=== PATIENT | female | born 1940 | race Caucasian/White ===

== ENCOUNTER 2018-03-19 21:59 | Observation (INO) | payer MEDICARE ==
[2018-03-19 22:45] LABS: ABS Basophils 0 10^3/ul (0-0.2); ABS Eosinophils 0.2 10^3/ul (0-0.6); ABS Lymphocytes 1.3 10^3/ul (1.0-4.8); ABS Monocytes 0.7 10^3/ul (0-0.8); ABS Neutrophils 3.9 10^3/ul (1.5-7.7); ABS Nucleated RBC 0 10^3/ul; Eosinophil % 3.9 % (0-6); Hematocrit 36 % (35-47); Hemoglobin 12.2 g/dl (12.0-16.0); Lymphocyte % 20.7 % (25-47); Mean Corpuscular HGB Conc 34 g/dl (31-36); Mean Corpuscular Hemoglobin 34 pg (27-31); Mean Corpuscular Volume 100 fL (80-97); Mean Platelet Volume 8.9 um3 (7.4-10.4); Nucleated Red Blood Cells % 0; Platelet Count 173 10^3/ul (150-450); Red Blood Count 3.61 10^6/ul (4.0-5.4); Red Cell Distribution Width 13 % (10.5-15); White Blood Count 6.2 10^3/ul (3.5-10.8)
[2018-03-19 23:02] LABS: EGFR Non-African American 71.8 (>60)
--- OUTSIDE RECORDS SUMMARY | 2018-03-19 23:28 | XMS REPORT ---
:1940 External Reference #:[id number] [facility] Address [address] [address] Phone [phone] Care Team Providers Name Role Phone Tobi Amos MD Primary Care Physician Unavailable Payers Type Date Identification Numbers Payment Provider Subscriber Health Maintenance Policy Number: Medicare Blue o Danae Boyiknjosé Alirio (O) [id number] Group Number: [id number] [address] [address] PayID: [id number] DAMI Hayes [id number] Medigap Part B Expires: 11/28/2000 Policy Number: [facility] Danae Gomes [id number] Group Number: [id number] [address] [address] Group Name: [id number] Adv Plan DAMI Hayes [id number] PayID: [id number] Problems Date Description Provider Status Onset: 07/29/2015 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 Active Social History Type Date Description Comments Marital Status Lives With Tony at [place] Occupation Retired Cigarette Use Pack Years - 10 Cigarette Use Quit 50 Years Ago ETOH Use Denies alcohol use Smoking Patient is a former smoker Recreational Drug Use Denies Drug Use Daily Caffeine Consumes on average 1 cup of regular coffee per day Daily Caffeine consumes chocolate occasionally Daily Caffeine Consumes on average 2 sodas Diet Coke per day Exercise Type/Frequency Exercises sporadically Walking when she feels good General Hx Text Do you follow a special diet: yes Do you have problems with snoring, daytime fatigue: pt states she does not know if she snores only can sleep on back. Allergies, Adverse Reactions, Alerts Date Description Reaction Status Severity Comments 01/19/2016 Iodinated Diagnostic Agents rash active Visipaque 01/22/2016 Visipaque rash active 07/31/2015 NKDA inactive Medications Medication Date Status Form Strength Qnty SIG Indications Ordering Provider Gas-X Ultra 07/29 Active Capsules 180mg prn Daryl MD Sarbjit Sandostatin Active Solution 40mg every 28 Unknown /0000 days Nexium Active [address]apsules DR 40mg 1 cap po Unknown /0000 qd Fluticasone Active Suspension 50mcg/Act 2 spray in Unknown Propionate /0000 each nostril in in the morning Carafate Active Tablets 1gm 1 by mouth Unknown /0000 daily Hydrochlorothiazi Active Tablets 25mg 1 by mouth Unknown de /0000 every day Claritin Active Tablets 10mg 1 tab po Unknown /0000 qd Centrum Silver 00 Active Tablets Adult 50 1 tab po Unknown Adult 50+ /0000 qd Vitamin D Active Tablets 1000Unit 1 by mouth Unknown (Cholecalciferol) /0000 every day ( Occasional taken ) Acetaminophen 00 Active Tablets 500mg prn Unknown Extra Strength /0000 Ibuprofen Active Tablets 200mg prn Unknown /0000 Docusate Sodium Active Capsules 100mg 2 caps by Unknown /0000 mouth every day Lactaid Fast Act Active Chewtabs 9000Unit prn Unknown /0000 Beano Active Tablets as Unknown /0000 directed prn Oxycodone HCL Active Tablets 5mg 1 tab by Unknown /0000 mouth every 4 hours as needed pain Careolol Active 1 gtt OU Unknown /0000 daily Pepto-Bismol Active as needed Unknown /0000 Tums Active as needed Unknown /0000 Tums 07/29 Hx Chewtabs 500mg prn Emmie /2014 Piedad, - N.P. 01/19 Maalox Advanced Hx Suspension 200-200-2 prn Unknown /0000 0mg/5ML - 01/19 Gas-X Ultra Hx Capsules 180mg prn Unknown Strength /0000 - 03/17 Vital Signs Date Vital Result Comment 03/15/2018 Height 67 inches 5'7" Weight 148.12 lb with shoes Heart Rate 52 /min BP Systolic Sitting 120 mmHg Lue reg cuff BP Diastolic Sitting 80 mmHg Lue reg cuff Respiratory Rate 16 /min BMI (Body Mass Index) 23.2 kg/m2 Ejection Fraction 55-60% date 06/20/17 ECHO 03/17/2016 Weight 140.38 lb Heart Rate 66 /min BP Systolic Sitting 132 mmHg BP Diastolic Sitting 62 mmHg Respiratory Rate 20 /min O2 % BldC Oximetry 99 % 01/22/2016 Height 67 inches 5'7" Weight 141.00 lb Heart Rate 57 /min BP Systolic Sitting 112 mmHg BP Diastolic Sitting 72 mmHg BMI (Body Mass Index) 22.1 kg/m2 01/19/2016 Weight 148.25 lb Heart Rate 54 /min BP Systolic Sitting 138 mmHg BP Diastolic Sitting 78 mmHg Respiratory Rate 20 /min Body Temperature 98.2 F 07/29/2015 Weight 142.50 lb Heart Rate 81 /min BP Systolic Sitting 140 mmHg BP Diastolic Sitting 72 mmHg Respiratory Rate 16 /min Body Temperature 98.3 F O2 % BldC Oximetry 98 % Results Test Date Test Result H/L Range Note Urinalysis Profile 05/10/2017 Urine Color Jacquelyn 1 Urine Appearance Cloudy 1 Urine Specific Samson 1.016 1.010-1.030 1 Urine pH 6.0 5-9 1 Urine Urobilinogen Negative Negative 1 Urine Ketones Negative Negative 1 Urine Protein 2+(100 mg/dL) Negative 1 Urine Leukocytes 3+ Negative 1 Urine Blood 3+ Negative 1 * * Negative 1, 2 Urine Nitrite Negative Negative 1 Urine Bilirubin Negative Negative 1 Urine Glucose Negative Negative 1 Urine White Blood Cell 3+(>20/hpf) Absent 1 Urine Red Blood Cell 3+(>10/hpf) Absent 1 Urine Bacteria Absent Absent 1 Urine Culture And Sensitivities 05/10/2017 Urine Culture SEE RESULT BELOW 1, 3 Urinalysis Profile 02/10/2017 Urine Color Yellow 4 Urine Appearance Cloudy 4 Urine Specific Samson 1.015 1.010-1.030 4 Urine pH 8.0 5-9 4 Urine Urobilinogen Negative Negative 4 Urine Ketones Negative Negative 4 Urine Protein 2+(100 mg/dL) Negative 4 Urine Leukocytes 3+ Negative 4 Urine Blood 2+ Negative 4 * * Negative 4, 5 Urine Nitrite Negative Negative 4 Urine Bilirubin Negative Negative 4 Urine Glucose Negative Negative 4 Urine White Blood Cell 3+(>20/hpf) Absent 4 Urine Red Blood Cell 3+(>10/hpf) Absent 4 Urine Bacteria Absent Absent 4 Urine Squamous Epithelial Cell Present Absent 4 Urine Culture And Sensitivities 02/10/2017 Urine Culture SEE RESULT BELOW 4, 6 Urinalysis Profile 03/17/2016 Urine Color Yellow 7 Urine Appearance Cloudy 7 Urine Specific Samson 1.009 Low 1.010-1.030 7 Urine pH 6.0 5-9 7 Urine Urobilinogen Negative Negative 7 Urine Ketones Negative Negative 7 Urine Protein Negative Negative 7 Urine Leukocytes 2+ Negative 7 Urine Blood 1+ Negative 7 Urine Nitrite Negative Negative 7 Urine Bilirubin Negative Negative 7 Urine Glucose Negative Negative 7 Urine White Blood Cell 3+(>20/hpf) Absent 7 Urine Red Blood Cell 3+(>10/hpf) Absent 7 Urine Bacteria Absent Absent 7 Urine Squamous Epithelial Cell Present Absent 7 Urine Culture And 03/17/2016 Urine Culture SEE RESULT 7, 8 Sensitivities BELOW CBC No Diff 02/27/2016 White Blood Count 17.2 10^3/uL High 3.5-10.8 9 Red Blood Count 3.61 10^6/uL Low 4.0-5.4 9 Hemoglobin 11.7 g/dL Low 12.0-16.0 9 Hematocrit 34 % Low 35-47 9 Mean Corpuscular Volume 94 fL 80-97 9 Mean Corpuscular Hemoglobin 33 pg High 27-31 9 Mean Corpuscular HGB Conc 35 g/dL 31-36 9 Red Cell Distribution Width 14 % 10.5-15 9 Platelet Count 363 10^3/uL 150-450 9 Mean Platelet Volume 9 um3 7.4-10.4 9 Laboratory test 02/27/2016 Blood Culture SEE RESULT BELOW 9, 10 finding Laboratory test 02/18/2016 Partial Thrombo 33.3 seconds 26.0-36.3 11, 12 finding Time PTT Inr/Protime 02/18/2016 Inr 0.99 0.89-1.11 11 Urinalysis Profile 01/28/2016 Urine Color Red Urine Appearance Turbid Urine Specific Samson 1.020 1.010-1.030 Urine pH 6.0 5-9 Urine Urobilinogen Negative Negative Urine Ketones Negative Negative Urine Protein 2+(100 mg/dL) Negative Urine Leukocytes Negative Negative Urine Blood 3+ Negative * * Negative 13 Urine Nitrite Negative Negative Urine Bilirubin Negative Negative Urine Glucose 1+(50 mg/dL) Negative Urine White Blood Cell Trace(0-5/hpf) Absent Urine Red Blood Cell 3+(>10/hpf) Absent Urine Bacteria Absent Absent Laboratory test finding 01/28/2016 Urine Culture And SEE RESULT BELOW 14 Sensitivities Urinalysis Profile 08/06/2015 Urine Color Yellow Urine Appearance Cloudy Urine Specific Samson 1.013 1.010-1.030 Urine pH 6.0 5-9 Urine Urobilinogen Negative Negative Urine Ketones Negative Negative Urine Protein Negative Negative Urine Leukocytes Negative Negative Urine Blood 1+ Negative Urine Nitrite Negative Negative Urine Bilirubin Negative Negative Urine Glucose Negative Negative Urine White Blood Cell Trace(0-5/hpf) Absent Urine Red Blood Cell 1+(3-5/hpf) Absent Urine Bacteria Absent Absent Urine Squamous Epithelial Cell Present Absent Laboratory test finding 08/06/2015 Urine Culture And SEE RESULT BELOW 15 Sensitivities Urinalysis Profile 07/29/2015 Urine Color Yellow Urine Appearance Cloudy Urine Specific Samson 1.010 1.010-1.030 Urine pH 7.0 5-9 Urine Urobilinogen Negative Negative Urine Ketones Negative Negative Urine Protein Negative Negative Urine Leukocytes Negative Negative Urine Blood 1+ Negative Urine Nitrite Negative Negative Urine Bilirubin Negative Negative Urine Glucose Negative Negative Urine White Blood Cell Absent Absent Urine Red Blood Cell 1+(3-5/hpf) Absent Urine Bacteria 1+ Absent Urine Squamous Epithelial Cell Present Absent Laboratory test finding 07/29/2015 Urine Culture And SEE RESULT BELOW 16 Sensitivities 1 [id number] *Ascorbic acid is present which may interfere with detection of blood. 3 SEE RESULT BELOW Name: DANAE GOMES : [address]: Emmie Herbert NP Acct: [id number] Unit: [id number] AGE: 76 Location: [facility] Re05/10/17 SEX: F Status: REG REF SPEC: [id number] MARCUS: 05/10/17-[address] [facility] [address]: Emmie Herbert NP REQ: [id number] RECD: 05/10/17163 STATUS: RES [facility] : Martha _ SOURCE: URINE SPDESC: ORDERED: Urine Culture COMMENTS: [id number] QUERIES: Urine Source: Random Procedure Result Reported Site Urine Culture Preliminary 05/12/17- 1024 ML Organism [address] Count 10-25,000 (Moderate) CFU/ML Few Enterobacteriacae; possible contamination. * ML - MAIN LAB ([facility]) . END OF REPORT * ML=Testing performed at Main Lab DEPARTMENT OF PATHOLOGY, [address], [place], [place] [address] Gianluca Malone M.D. Director [facility] # [id number] *Ascorbic acid is present which may interfere with detection of blood. 6 SEE RESULT BELOW Name: DANAE GOMES : [address]: Emmie Herbert NP Acct: [id number] Unit: [id number] AGE: 76 Location: [facility] Re02/10/17 SEX: F Status: REG REF SPEC: [id number] MARCUS: 02/10/[address] [facility] [address]: Emmie Herbert NP REQ: [id number] RECD: 02/10/17-1215 STATUS: MOHSEN JONES DR: Tobi Thomas _ SOURCE: URINE SPDESC: ORDERED: Urine Culture COMMENTS: [id number] Procedure Result Reported Site Urine Culture Final 02/11/17- 1203 ML No growth of clinically significant organisms * ML - MA[facility] LAB ([facility]) . END OF REPORT * ML=Testing performed at Main Lab DEPARTMENT OF PATHOLOGY, [address] [place] [address] Gianluca Malone M.D. Director [facility] # [id number] TIO [id number] 7 SEE RESULT BELOW Name: DANAE GOMES : [address]: Emmie Herbert NP Acct: [id number] Unit: [id number] AGE: 75 Location: [facility] Re03/17/16 SEX: F Status: REG REF SPEC: [id number] MARCUS: 03/17/[address]: Emmie Herbert NP REQ: [id number] RECD: 03/17/16 STATUS: COMP KAREN DR: Tobi Ponce MD _ SOURCE: URINE SPDESC: ORDERED: Urine Culture COMMENTS: [facility] [id number] Procedure Result Reported Site Urine Culture Final 03/18/16- 1556 ML No Growth (<1,000 CFU/mL) * ML - MAIN LAB ([facility]) . END OF REPORT * ML=Testing performed at Main Lab DEPARTMENT OF PATHOLOGY, [address] [place] [address] Gianluca Malone M.D. Director [facility] # [id number] [address] TERRENCE ROJO [phone] 10 SEE RESULT BELOW Name: JUVENALJEREMIAHJoséDANAE : [address]: Marcus Ponce MD Acct: [id number] Unit: [id number] AGE: 75 Location: [facility] Re02/27/16 SEX: F Status: REG REF SPEC: [id number] MARCUS: 02/27/[address] [facility] [address]: Terrence Rojo MD REQ: [id number] RECD: 02/27/16 STATUS: COMP OTHR DR: Tobi Ponce MD _ SOURCE: BLOOD,VENO SPDESC: ORDERED: Blood Cult COMMENTS: PLEASE CALL DR TERRENCE ROJO [phone] . . CALLED MADE NO RETURN CALL.[id number] . Procedure Result Reported Site Aerobic Culture Bottle Final 03/03/16- 1701 ML No Growth Day 5 Anaerobic Culture Bottle Final 03/03/16- 1701 ML No Growth Day 5 * ML - [facility] ([facility]) . END OF REPORT * ML=Testing performed at Main Lab DEPARTMENT OF PATHOLOGY, [address] [place] [address] Gianluca Malone M.D. Director [facility] # [id number] 11 CALL RESULTS TO 6510 12 CALL RESULTS TO 9532 13 *Ascorbic acid is present which may interfere with detection of blood. 14 SEE RESULT BELOW Name: DANAE GOMES : [address]: Emmie Herbert NP Acct: [id number] Unit: [id number] AGE: 75 Location: [facility] Re01/28/16 SEX: F Status: REG REF SPEC: [id number] MARCUS: 01/28/[address]: Emmie Herbert NP REQ: [id number] RECD: 01/28/16 STATUS: MOHSEN JONES DR: Martha Ponce MD _ [facility]: Urine Culture Procedure Result Reported Site Urine Culture Final 01/30/16- 828 ML Organism [address] Count 10-25,000 (Moderate) CFU/ML Organism [address] Count 1-10,000 (Few) CFU/ML 1. ESCHERICHIA COLI M.I.C. RX --------- ------ Ampicillin <=2 S Cefazolin <=4 S Cefepime <=1 S Ceftriaxone <=1 S Ciprofloxacin <=0.25 S Gentamicin <=1 S Levofloxacin <=0.12 S Meropenem <=0.25 S Nitrofurantoin <=16 S Tetracycline <=1 S Pipercillin/Tazobactam <=4 S Trimethoprim/Sulfamethoxazole <=20 S Amoxicillin/Clavulanic Acid <=2 S Aztreonam <=1 S Contact the Microbiology Department for any additional antibiotic reporting. * ML - MAIN LAB ([facility]) . END OF REPORT * ML=Testing performed at Main Lab DEPARTMENT OF PATHOLOGY, [address] [place] [address] Gianluca Malone M.D. Director [facility] # [id number] 15 SEE RESULT BELOW Name: DANAE GOMES : [address]: Emmie Herbert NP Acct: [id number] Unit: [id number] AGE: 74 Location: [facility] Re08/06/15 SEX: F Status: REG REF SPEC: [id number] MARCUS: 08/06/[address]: Emmie Herbert NP REQ: [id number] RECD: 08/06/15 STATUS: MOHSEN JONES DR: Martha _ SOURCE: URINE SPDESC: ORDERED: Urine Culture Procedure Result Verified Site Urine Culture Final 08/08/15- 930 ML Organism [address] Count 75-100,000 (Many) CFU/ML * ML - MAIN LAB ([facility]) . END OF REPORT * ML=Testing performed at Main Lab DEPARTMENT OF PATHOLOGY, [address] [place] [address] Gianluca Malone M.D. Director [facility] # [id number] 16 SEE RESULT BELOW Name: DANAE GOMES : [address]: Emmie Herbert NP Acct: [id number] Unit: [id number] AGE: 74 Location: [facility] Re07/29/15 SEX: F Status: REG REF SPEC: [id number] MARCUS: 07/29/15-[address]: Emmie Herbert NP REQ: [id number] RECD: 07/29/15 STATUS: MOHSEN JONES DR: Martha _ SOURCE: URINE SPDESC: ORDERED: Urine Culture Procedure Result Verified Site Urine Culture Final 07/31/15- 1000 ML Organism [address] Count 50-75,000 (Many) CFU/ML * ML - MAIN LAB ([facility]) . END OF REPORT * ML=Testing performed at Main Lab DEPARTMENT OF PATHOLOGY, [address] [place] [address] Gianluca Malone M.D. Director [facility] # [id number] Procedures Date CPT Code Description Status 06/20/2017 12234 ECHO Transthorasic Realtime 2D W Doppler & Color Completed Flow Hosp 07/20/2016 08564 ECHO Transthoracic, Real-Time 2D With Doppler And Color Completed Flow 02/18/2016 87595 Ultrasound Guidance For Vascular Access Completed 02/18/2016 35762 Angiography Select, Ea Add'l VSL Completed 02/18/2016 31250 Angiography,Visceral,Selective Or Supraselective W/Wo Completed Flush Aorto 02/18/2016 09148 Vascular Embolization Or Occlu Tumor Organ Ischemia Or Completed Infarction 02/18/2016 67812 Catheter Placement Arterial System Addtl 2ND/3RD Ord Completed Abdom/Pelv 02/18/2016 36788 Catheter Placement Arterial System Init 3RD Order Completed Abdom/Pelv/Low 02/18/2016 29202 Cath Placement-Abdom, Pelvic Or Lower Extremity Completed 09/15/2015 36761 ECHO Transthorasic Realtime 2D W Doppler & Color Completed Flow Hosp 02/28/2015 99388 ECHO Transthorasic Realtime 2D W Doppler & Color Completed Flow Hosp Encounters Type Date Location Provider CPT E/M Dx Office Visit 03/31/2017 2:00p [facility] [place] [address] L72.0 L82.1 I89.0 D18.01 Office Visit 03/18/2016 1:30p [facility] Vascular Medicine Terrence Rojo, [address] C7A.1 Of [place] No C7B.8 C7A.090 Office Visit 03/17/2016 11:38a [facility] Emmie Herbert N.P. 65444 R31.9 R31.9 Office Visit 01/22/2016 3:30p [facility] Vascular Medicine Terrence Rojo [address] C7A.1 Of [place] No C7B.8 C7A.090 Office Visit 01/19/2016 2:46p [facility] Emmie Herbert, N.P. [address]349 R21 R21 Office Visit 07/29/2015 1:11p [facility] Emmie Herbert, N.P. 65160 599.70 599.70 Plan of Care 03/18/2016 - Terrence Rojo M.D.C7A.1 Malignant poorly differentiated neuroendocrine tumorsRecommendations:Mrs. Gomes and I agreed to wait at least 1 -2 months to see how and if her carcinoid symptoms improve. If she experiences no improvement then we will discuss repeat embolization of either her left lobeliver again or to a lesion that has never been treated in segment 6 of her right lobe. 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 She has my contact numbers and email address and was encouraged again to contact me at anytime.C7B.8 Other secondary neuroendocrine [id number].090 Malignant carcinoid tumor of the bronchus and lung
[2018-03-19] MEDS ORDERED: Nitroglycerin 2% OINT* 1 GM PAK TOPICAL ONE (23:32)
[2018-03-19] MEDS ORDERED: Nitroglycerin TAB 0.4 MG* 0.4 MG TAB SL ONE (23:32)
[2018-03-20] MEDS ORDERED: hydrALAZINE IV* 20 MG/ML VIAL IV SLOW PU ONE (00:23)
[2018-03-20] MEDS ORDERED: Nitroglycerin 0.1 mg/Hr PATCH* (2.5 MG) TRANSDERM ONE (00:23)
--- NOTE | 2018-03-20 02:21 | HP ---
H&P (Free Text) History and Physical: PCP: Shelbi Amos MD Oncology: Yulissa Ponce MD Date/Time: 03/20/2018 0220 CC: chest pain HPI: Mrs Gomes is a 77YO female, mother of Dr Gomes sports medicine, HX of carcinoid cancer who presents for onset this afternoon of non-exertional inferolateral L chest pressure radiating to the back and down the L arm associated with SOB and nausea, but no emesis, sweats, palpitations, light- headedness, cough, congestion, F/C, or diarrhea. She did have 3 very loose stools today, but did not check for black or blood content. She also has been having increased chronic abdominal pain & bloating. 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 moderate tricuspid insufficiency HTN GERD Ambulatory Orders Calcium Carbonate CHEW TAB* [Tums*] 1 tab PO BID PRN 04/28/15 Cholecalciferol [Vitamin D] 1 tab PO DAILY 04/28/15 Esomeprazole Magnesium [Nexium] 1 tab PO DAILY 04/28/15 Fluticasone Propionate [Flonase Allergy Relief] 2 spray NASAL QAM 04/28/15 LoraTADine TAB(NF) [Claritin 10 MG TAB(NF)] 1 tab PO DAILY 04/28/15 Multivitamin [Multiple Vitamins] 1 tab PO DAILY 04/28/15 Lactase Enzyme (NF) [Lactaid Fast Act] 1 tab PO DAILY PRN 02/17/16 Sucralfate [Carafate] 1 tab PO DAILY MDD 2 tab 02/17/16 Careolol Hcl 1 drop BOTH EYES DAILY 05/03/16 Hydrochlorothiazide TAB* [Hydrodiuril TAB*] 1 tab PO DAILY 05/03/16 SandoSTATIN LAR DEPOT 40 mg IM DAILY 03/20/18 Allergies amlodipine Allergy (Verified 03/19/18 22:11) Unknown Reaction Details Iodinated Contrast- Oral and IV Dye Allergy (Verified 03/19/18 22:11) Rash iodixanol Allergy (Verified 03/19/18 22:11) Rash pollen extracts Allergy (Verified 03/19/18 22:11) Eyes Itchy/Swollen/Red/Watery ciprofloxacin Adverse Reaction (Verified 03/20/18 02:26) Leg Cramps enoxaparin Adverse Reaction (Verified 03/20/18 02:26) Bruising with petechiae Bruising with petechiae PSurgHx cholecystectomy w/ appendectomy hysterectomy small bowel resection OU cataract extractions SocHx: quit smoking ~50 years ago w/ <10 PYHX, no alcohol or recreational drugs ; lives alone at [place]; full code status FamHx: Mother: passed at 86 2nd "complications of severe osteoporosis"; Father: passed at 69 2nd gastric CA ROS: as above, otherwise reviewed and all were negative vitals: Vital Signs Temp 36.6 C 03/20/18 04:50 Pulse 61 03/20/18 04:50 Resp 18 03/20/18 04:50 BP 147/57 03/20/18 04:50 Pulse Ox 100 03/20/18 04:50 Intake & Output 03/19/18 03/19/18 03/20/18 11:59 23:59 11:59 Intake Total 0 Balance 0 Weight 65.771 kg Intake: Oral 0 Other: Estimated Void Medium # Bowel Movements 0 # Voids 1 Constitutional: NAD, normally developed, well-nourished elderly white female HEENM: atraumatic; sclera/conjunctiva: anicteric/clear; hearing: clinically intact; oropharynx: clear, mucosa tacky Neck: soft tissue: no nuchal rigidity; thyroid: normal Pulmonary: clear to auscultation bilaterally, good aeration, no accessory muscle use CV: RR/RR, normal S1S2, no carotid bruit, no jugular venous distention, 2+ B DP/ PT, no edema Abdominal: soft, mildly distended, diffusely mildly tender, no rebound/guarding/ rigidity, normoactive bowel sounds, no hepatosplenomegaly or masses, no costovertebral angle tenderness Musculoskeletal: general: grossly intact; gait: stable Integumental: normal appearance and texture of exposed skin Psychiatric orientation: AA&O to PPS affect: calm mood: cooperative eye contact: good content: reliable responses: timely insight: fair to good Testing: Lab Results 03/19/18 03/19/18 03/19/18 Range/Units 22:20 22:20 22:20 WBC 6.2 (3.5-10.8) 10^3/ul RBC 3.61 L (4.0-5.4) 10^6/ul Hgb 12.2 (12.0-16.0) g/dl Hct 36 (35-47) % MCV 100 H (80-97) fL MCH 34 H (27-31) pg MCHC 34 (31-36) g/dl RDW 13 (10.5-15) % Plt Count 173 (150-450) 10^3/ul MPV 8.9 (7.4-10.4) um3 Neut % (Auto) 63.1 (38-83) % Lymph % (Auto) 20.7 L (25-47) % Davison % (Auto) 11.9 H (0-7) % Eos % (Auto) 3.9 (0-6) % Baso % (Auto) 0.4 (0-2) % Absolute Neuts (auto) 3.9 (1.5-7.7) 10^3/ul Absolute Lymphs (auto) 1.3 (1.0-4.8) 10^3/ul Absolute Monos (auto) 0.7 (0-0.8) 10^3/ul Absolute Eos (auto) 0.2 (0-0.6) 10^3/ul Absolute Basos (auto) 0 (0-0.2) 10^3/ul Absolute Nucleated RBC 0 10^3/ul Nucleated RBC % 0 Sodium 130 L (139-145) mmol/L Potassium 3.8 (3.5-5.0) mmol/L Chloride 94 L (101-111) mmol/L Carbon Dioxide 28 (22-32) mmol/L Anion Gap 8 (2-11) mmol/L BUN 10 (6-24) mg/dL Creatinine 0.78 (0.51-0.95) mg/dL Est GFR ( Amer) 92.3 (>60) Est GFR (Non-Af Amer) 71.8 (>60) BUN/Creatinine Ratio 12.8 (8-20) Glucose 103 H (70-100) mg/dL POC Glucose (mg/dL) (70-100) mg/dL Lactic Acid 1.1 (0.5-2.0) mmol/L Calcium 9.6 (8.6-10.3) mg/dL Total Bilirubin 0.40 (0.2-1.0) mg/dL AST 29 (13-39) U/L ALT 15 (7-52) U/L Alkaline Phosphatase 112 H (34-104) U/L Troponin I 0.01 (<0.04) ng/mL Total Protein 7.2 (6.4-8.9) g/dL Albumin 4.2 (3.2-5.2) g/dL Globulin 3.0 (2-4) g/dL Albumin/Globulin Ratio 1.4 (1-3) 03/20/18 03/20/18 Range/Units 01:33 06:01 WBC (3.5-10.8) 10^3/ul RBC (4.0-5.4) 10^6/ul Hgb (12.0-16.0) g/dl Hct (35-47) % MCV (80-97) fL MCH (27-31) pg MCHC (31-36) g/dl RDW (10.5-15) % Plt Count (150-450) 10^3/ul MPV (7.4-10.4) um3 Neut % (Auto) (38-83) % Lymph % (Auto) (25-47) % Davison % (Auto) (0-7) % Eos % (Auto) (0-6) % Baso % (Auto) (0-2) % Absolute Neuts (auto) (1.5-7.7) 10^3/ul Absolute Lymphs (auto) (1.0-4.8) 10^3/ul Absolute Monos (auto) (0-0.8) 10^3/ul Absolute Eos (auto) (0-0.6) 10^3/ul Absolute Basos (auto) (0-0.2) 10^3/ul Absolute Nucleated RBC 10^3/ul Nucleated RBC % Sodium (139-145) mmol/L Potassium (3.5-5.0) mmol/L Chloride (101-111) mmol/L Carbon Dioxide (22-32) mmol/L Anion Gap (2-11) mmol/L BUN (6-24) mg/dL Creatinine (0.51-0.95) mg/dL Est GFR ( Amer) (>60) Est GFR (Non-Af Amer) (>60) BUN/Creatinine Ratio (8-20) Glucose (70-100) mg/dL POC Glucose (mg/dL) 108 H (70-100) mg/dL Lactic Acid (0.5-2.0) mmol/L Calcium (8.6-10.3) mg/dL Total Bilirubin (0.2-1.0) mg/dL AST (13-39) U/L ALT (7-52) U/L Alkaline Phosphatase (34-104) U/L Troponin I 0.01 (<0.04) ng/mL Total Protein (6.4-8.9) g/dL Albumin (3.2-5.2) g/dL Globulin (2-4) g/dL Albumin/Globulin Ratio (1-3) ECG, personally reviewed: sinus rhythm rate 60, no ischemia, frequent PACs CXR, personally reviewed: stigmata of COPD, no acute finding XRY abd, personally reviewed: non-specific increased bowel gas pattern, no obstruction Impression: 77F presenting with atypical chest pain for r/o ACS DIAGNOSIS & PLAN Primary chest pain r/o ACS : telemetry : trend troponin : chemical NST in AM : supportive care 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
[2018-03-20] MEDS ORDERED: Acetaminophen TAB* 325 MG PO PRN (02:24)
[2018-03-20] MEDS ORDERED: Albuterol 2.5 MG/3 ML NEB.SOL* (0.083%) INH PRN (02:24)
[2018-03-20] MEDS ORDERED: Ondansetron INJ* 2 MG/ML VIAL IV PRN (02:25)
[2018-03-20] MEDS ORDERED: NS 0.9% 1000 ML* 1,000 ML IV SCH (02:30)
[2018-03-20] MEDS ORDERED: Lactase Enzyme (NF) 3,000 UNIT TAB PO PRN (03:07)
--- NOTE | 2018-03-20 04:35 | ED ---
Gustavo Paulino Nikita, scribed for Duran Pena MD on 03/19/18 at 2310 . HPI Chest Pain - HPI Summary HPI Summary: This patient is a 77 year old F presenting to ED with a chief complaint of L- sided CP since mid-afternoon earlier today. The CC is described as steady, heavy pressure, radiating to the back, to the L arm, and to the jaw. The patient rates the pain 3/10 in severity. Symptoms aggravated by nothing. Symptoms alleviated by nothing (did not take ASA). Patient reports slightly SOB , BM earlier today, and nausea. Patient denies cough and low back pain. - History of Current Complaint Chief Complaint: EDChestPainROMI Time Seen by Provider: 03/19/18 22:46 Hx Obtained From: Patient Onset/Duration: Started Hours Ago, Still Present Timing: Constant Initial Severity: Mild Current Severity: Mild Pain Intensity: 3 Pain Scale Used: 0-10 Numeric Chest Pain Radiates: Yes Chest Pain Radiates To:: Back, Arm - L, Jaw Character: Other: - steady heavy pressure Aggravating Factor(s): Nothing Alleviating Factor(s): Nothing Associated Signs and Symptoms: Positive: Other: - Patient reports slightly SOB, BM earlier today, and nausea. Patient denies cough and low back pain. - Additional Pertinent History Primary Care Physician: [id number] - Allergy/Home Medications Allergies/Adverse Reactions: Allergies Allergy/AdvReac Type Severity Reaction Status Date / Time amlodipine Allergy Unknown Verified 03/19/18 22:11 Reaction Details Iodinated Contrast- Oral and Allergy Rash Verified 03/19/18 22:11 IV Dye iodixanol Allergy Rash Verified 03/19/18 22:11 pollen extracts Allergy Eyes Verified 03/19/18 22:11 Itchy/Swollen/Red/Watery ciprofloxacin AdvReac Leg Cramps Verified 03/20/18 02:26 enoxaparin AdvReac Bruising Verified 03/20/18 02:26 with petechiae Home Medications: Home Medications SandoSTATIN LAR DEPOT 40 mg IM DAILY 03/20/18 [History Confirmed 03/20/18] PMH/Surg Hx/FS Hx/Imm Hx Endocrine/Hematology History: Reports: Other Endocrine/Hematological Disorders - Neuroendocrine tumor, (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 Denies: Hx Diabetes Cardiovascular History: Reports: Hx Hypertension - on medications Denies: Hx Pacemaker/ICD GI History: Reports: Hx Gastroesophageal Reflux Disease - Related to carcinoid cancer, Hx Obstructive Bowel - Bowel resection with 12 inches of bowel infiltrated by tumor, Other GI Disorders - 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 liver tumors Hx Chemotherapy: Yes - sandostatin shots 04/30/15 - Surgical History Surgery Procedure, Year, and Place: 1969- Cholecystectomy. 1990- Hysterectmy for abnormal bleeding. Small bowel resection. LIVER EMBOLIZATION X2. PRRT TREATMENT Infectious Disease History: No Infectious Disease History: Denies: History Other Infectious Disease, Traveled Outside the [place] in Last 30 Days - Family History Known Family History: Positive: Other Family History: stomach CA, osteopenia - Social History Alcohol Use: None Substance Use Type: Reports: None Smoking Status (MU): Unknown if Ever Smoked Review of Systems Positive: Chest Pain - steady, heavy pressure, radiating to the back, to the L arm, and to the jaw Positive: Shortness Of Breath - slightly, Cough Positive: Nausea, Other - BM movement Positive: Other - denies low back pain All Other Systems Reviewed And Are Negative: Yes Physical Exam - Summary Physical Exam Summary: Appearance: Well appearing, no pain distress Skin: warm, dry, reflects adequate perfusion Head/face: normal Eyes: EOMI, MELANIE ENT: normal Neck: supple, non-tender Respiratory: CTA, breath sounds present Cardiovascular: RRR, pulses symmetrical Abdomen: non-tender, soft Bowel Sounds: present, hyperactive abdominal sounds with no tenderness Musculoskeletal: normal, strength/ROM intact Neuro: normal, sensory motor intact, A&Ox3 Triage Information Reviewed: Yes Vital Signs On Initial Exam: Initial Vitals Temp Pulse Resp BP Pulse Ox 97.3 F 60 18 178/62 99 03/19/18 22:09 03/19/18 22:09 03/19/18 22:09 03/19/18 22:09 03/19/18 22:09 Vital Signs Reviewed: Yes Diagnostics - Vital Signs Vital Signs Temp Pulse Resp BP Pulse Ox 03/19/18 22:48 53 16 181/82 98 03/19/18 22:18 13 181/89 03/19/18 22:09 97.3 F 60 18 178/62 99 - Laboratory Lab Results: Lab Results 03/19/18 03/19/18 Range/Units 22:20 22:20 WBC 6.2 (3.5-10.8) 10^3/ul RBC 3.61 L (4.0-5.4) 10^6/ul Hgb 12.2 (12.0-16.0) g/dl Hct 36 (35-47) % MCV 100 H (80-97) fL MCH 34 H (27-31) pg MCHC 34 (31-36) g/dl RDW 13 (10.5-15) % Plt Count 173 (150-450) 10^3/ul MPV 8.9 (7.4-10.4) um3 Neut % (Auto) 63.1 (38-83) % Lymph % (Auto) 20.7 L (25-47) % Alexander % (Auto) 11.9 H (0-7) % Eos % (Auto) 3.9 (0-6) % Baso % (Auto) 0.4 (0-2) % Absolute Neuts (auto) 3.9 (1.5-7.7) 10^3/ul Absolute Lymphs (auto) 1.3 (1.0-4.8) 10^3/ul Absolute Monos (auto) 0.7 (0-0.8) 10^3/ul Absolute Eos (auto) 0.2 (0-0.6) 10^3/ul Absolute Basos (auto) 0 (0-0.2) 10^3/ul Absolute Nucleated RBC 0 10^3/ul Nucleated RBC % 0 Sodium 130 L (139-145) mmol/L Potassium 3.8 (3.5-5.0) mmol/L Chloride 94 L (101-111) mmol/L Carbon Dioxide 28 (22-32) mmol/L Anion Gap 8 (2-11) mmol/L BUN 10 (6-24) mg/dL Creatinine 0.78 (0.51-0.95) mg/dL Est GFR ( Amer) 92.3 (>60) Est GFR (Non-Af Amer) 71.8 (>60) BUN/Creatinine Ratio 12.8 (8-20) Glucose 103 H (70-100) mg/dL Calcium 9.6 (8.6-10.3) mg/dL Total Bilirubin 0.40 (0.2-1.0) mg/dL AST 29 (13-39) U/L ALT 15 (7-52) U/L Alkaline Phosphatase 112 H (34-104) U/L Troponin I 0.01 (<0.04) ng/mL Total Protein 7.2 (6.4-8.9) g/dL Albumin 4.2 (3.2-5.2) g/dL Globulin 3.0 (2-4) g/dL Albumin/Globulin Ratio 1.4 (1-3) Result Diagrams: 03/19/18 22:20 03/19/18 22:20 Lab Statement: Any lab studies that have been ordered have been reviewed, and results considered in the medical decision making process. - Radiology Abdomen XR Radiology Interpretation Completed By: ED Physician - Non-specific bowel gas pattern CXR Radiology Interpretation Completed By: ED Physician - Consolidation in the right lower lobe. - EKG 2156 Cardiac Rate: NL - 60 bpm EKG Rhythm: Sinus Rhythm ST Segment: Normal EKG Interpretation: frequent PACs, normal axis Re-Evaluation - Re-Evaluation First Eval Re-Evaluation Time: 00:11 Comment: Discussed results with the patient and family. Discussed with patient' s son who is a physician about CXR finding consolidation in the right lower lobe. The son does not want to treat it right now. Her BP is still high so the patient agrees to be admitted. Chest Pain Course/Dx - Course Course Of Treatment: pt with hx of carcinoid and typical hx for ACS. ASA here but pt initially refused BP management. BPs are up. IV tx. Initial trop neg. No acute ST change on EKG. PACs were noted. Also with some feeling of distention to abd. Xrays show no air fluid levels, etc. Admit for further. - Chest Pain Differential Diagnosis/HQI/PQRI: Acute CO, ACS, Other: - chest pain, uncontrolled HTN, carcinoid, SBO - Diagnoses Provider Diagnoses: Chest pain, Uncontrolled hypertension, Multiple metastatic carcinoid tumors - Provider Notifications Discussed Care Of Patient With: Darrin Vázquez Time Discussed With Above Provider: 00:40 Instructed by Provider To: Other - Consulted Dr. Frankenberg who accepts the patient for admission. Discharge - Sign-Out/Discharge Documenting (check all that apply): Discharge - Discharge Plan Condition: Fair Disposition: ADMITTED TO [facility] - Billing Disposition and Condition Condition: FAIR Disposition: [facility] [place] The documentation as recorded by the Gustavo fulton Nikita accurately reflects the service I personally performed and the decisions made by , Duran Pena MD.
[2018-03-20] MEDS ORDERED: Omeprazole CAP* 20 MG PO SCH (06:00)
[2018-03-20 06:34] LABS: INR 0.88 (0.77-1.02)
[2018-03-20 07:38] LABS: EGFR Non-African American 84.1 (>60)
--- NOTE | 2018-03-20 07:40 | RAD ---
HISTORY: Chest pain COMPARISONS: CT of the chest dated March 09, 2018 VIEWS: 1: frontal portable view of the chest at 10:49 PM FINDINGS: LINES AND TUBES: None. CARDIOMEDIASTINAL SILHOUETTE: The cardiomediastinal silhouette is normal for portable technique. PLEURA: Again noted is a pleural-based mass along the right hemidiaphragm, stable from the previous CT examination. LUNG PARENCHYMA: There is hyperinflation. ABDOMEN: The upper abdomen is clear. There is no subphrenic gas. BONES AND SOFT TISSUES: No bone or soft tissue abnormalities are noted. IMPRESSION: 1. COPD. 2. STABLE PLEURAL-BASED MASS ALONG THE RIGHT HEMIDIAPHRAGM
--- NOTE | 2018-03-20 07:54 | RAD ---
INDICATION: Chest and upper abdominal pain. COMPARISON: Comparison is made with a prior CT of the abdomen and pelvis from March 09, 2018. TECHNIQUE: Supine and upright views of the abdomen were obtained. FINDINGS: The small bowel and colon appear nondistended. No free intraperitoneal air is seen. Several surgical clips project over the midline over the upper pelvis. IMPRESSION: NO EVIDENCE FOR ACUTE FINDING.
[2018-03-20] MEDS ORDERED: ESOMEPRAZOLE MAGNESIUM PO SCH (09:00)
[2018-03-20] MEDS ORDERED: Cetirizine* 10 MG TAB PO SCH (09:00)
[2018-03-20] MEDS ORDERED: Sucralfate TAB* 1 GM PO SCH (09:00)
[2018-03-20] MEDS ORDERED: OCTREOTIDE IM SCH (09:00)
[2018-03-20] MEDS ORDERED: Hydrochlorothiazide TAB* 25 MG PO SCH (09:00)
[2018-03-20] MEDS ORDERED: Fluticasone NASAL SPRAY 50MCG* 16 gm SPRAY BTL NASAL SCH (09:00)
[2018-03-20] MEDS ORDERED: Docusate CAP* 100 MG PO SCH (09:00)
[2018-03-20 10:47] VITALS: BP 127/59
--- NOTE | 2018-03-21 01:09 | DS ---
CC: Dr. Amos.; Dr. Ponce* DISCHARGE SUMMARY: DATE OF ADMISSION: 03/20/18 DATE OF DISCHARGE: 03/20/18 PRIMARY CARE PROVIDER: Dr. Amos. ONCOLOGIST: Dr. Ponce. DISCHARGE DIAGNOSIS: Chest pain, acute coronary syndrome ruled out. SECONDARY DIAGNOSES: 1. Metastatic carcinoid tumor on treatment with Sandostatin, status post PRRT. 2. Moderate tricuspid insufficiency. 3. Hypertension. 4. Gastroesophageal reflux disease. MEDICATIONS: Medication list is unchanged from admission as follows: 1. Calcium carbonate 1 tablet p.o. b.i.d. as needed for heartburn. 2. Carteolol 1 drop to both eyes daily. 3. Cholecalciferol 1000 units p.o. daily. 4. Nexium 40 mg p.o. daily. 5. Fluticasone propionate 2 sprays to nostrils in the morning. 6. Hydrochlorothiazide 25 mg p.o. daily. 7. Lactaid 9000 units p.o. daily as needed for GI discomfort. 8. Loratadine 10 mg p.o. daily. 9. Multivitamin 1 tablet p.o. daily. 10. Sandostatin LAR Depot 40 mg IM daily. 11. Sucralfate 1 g p.o. daily. HOSPITAL COURSE: Ms. Gomes is a 77-year-old lady with a past medical history as stated above that presented to the emergency room with complaints of left- sided upper quadrant pain radiating to her left shoulder, jaw, and left arm associated with shortness of breath and nausea. For more details about her presentation, I refer you to her history and physical. The patient was admitted to the telemetry floor where she had no significant arrhythmias. Her EKG showed no acute ischemic changes and serial troponins were negative x3. Dr. Vázquez, the admitting physician had ordered a nuclear medicine stress test and the patient declined it. I did talk to her about the fact that just her EKG and negative troponins are not sufficient to rule out coronary artery disease. The patient verbalized understanding of the explanation and states that she is afraid of having nuclear medicine stress test as this can cause carcinoid crisis. I did offer an exercise echocardiogram stress test, but the patient declined it anyway as she felt even if her stress test was positive, she would not pursue any further treatment considering her stage IV carcinoid tumor. I did explain that she is a high risk for PE considering her malignancy and that she could have a CTA of the chest to rule out PE. She states that she had a CAT scan with contrast last week and that she felt very sick after the contrast injection, so she would not want to pursue another CAT scan with contrast. I explained that the other option of V/Q scan includes nuclear medicine study and then we can go back to the same argument of the carcinoid crisis. The patient's son and daughter- in- law are physicians and she understands that an untreated pulmonary embolism could be fatal, but she states that considering her malignancy "this would now be a bad way to go." She is scheduled to have further tumor embolization, but at the same time she is considering palliative care options. I did call her son ( Neil Eliseo) and explained my conversation with his mother. He is in agreement with no further workup. He actually stated the patient has this left-sided pain frequently and this is usually attributed to gastrointestinal gas but yesterday the pain had radiated to her jaw and she got anxious about it and that is the reason why they came to the emergency room. The patient was not spicing to be admitted and was not interested in any further workup as described above. The patient is alert, awake and oriented x3 and I believe she has the capacity to make these decisions even though I do not agree with them. She will be discharged home today to follow up with Dr. Amos as outpatient. DIET: Regular diet. ACTIVITIES: As tolerated. DISPOSITION: To home. STATUS WHILE IN THE HOSPITAL: Observation. The patient was educated about symptoms that should prompt her return to the emergency room and even if she is not interested in further tests, if she does have symptoms that she is concerned, we could try a palliative care approach and make sure that she is comfortable. Please keep in mind this is a summarized version of this patient's hospital stay. If you need more information, please feel free to call me at [phone] or please obtain the full medical records. TIME SPENT: Approximately 45 minutes were spent to complete this discharge. [id number]/CPS #: [id number] MTDD
[2018-03-21] MEDS ORDERED: Heparin VIAL(*) 5000 UNITS/ML VIAL (FIVE THOUSAND) SUBCUT SCH (06:00)
[2018-03-21] MEDS ORDERED: Aspirin EC TAB* 81 MG TAB.EC PO SCH (09:00)
== END 2018-03-20 11:03 | disposition home or self-care (01) ==
LOC: ED 21:59 → MEDTELE 03-20 02:21
PROVIDERS: ADMIT Hospitalist; ATTEND Internal Medicine
DX: R07.9 Chest pain, unspecified (principal); C18.9 Malignant neoplasm of colon, unspecified; C78.7 Secondary malignant neoplasm of liver and intrahepatic bile duct; I10 Essential (primary) hypertension; K21.9 Gastro-esophageal reflux disease without esophagitis; Z79.899 Other long term (current) drug therapy; R06.02 Shortness of breath; J44.9 Chronic obstructive pulmonary disease, unspecified; R00.1 Bradycardia, unspecified; R94.31 Abnormal electrocardiogram [ECG] [EKG]
CPT/HCPCS: 36415; 71045; 74019; 80048; 80053; 83605; 83735; 84484; 85025; 85610; 85730; 93005; 96361; 96374; 99284; A9270-GY; G0378; J0360

== ENCOUNTER → 2018-04-28 07:02 | Day surgery (SDC) | payer MEDICARE ==
[~2018-04-28 07:02] MED LIST: Dexamethasone IV* 4 MG/ML 1 ML (4 MG) ONE; Flumazenil* 0.1 MG/ML 5 ML MDV ONE; Iohexol 350 (CONTRAST) 200 ML MDV IV ONE; Ketorolac INJ* 30 MG/ML 1 ML VIAL ONE; Lidocaine 1% INJ* 10 MG/ML 30 ML SDV ONE; Midazolam* 1 MG/ML 10 ML VIAL (10 MG) ONE; NS 0.9% IVPB ONE; Naloxone* 0.4 MG/ML 1 ML VIAL ONE; OCTREOTIDE ACETATE IVPB ONE; Octreotide Acetate* 500 MCG in NS 0.9% 100 ML* 100 ML IVPB SCH; Ondansetron INJ* 2 MG/ML VIAL ONE; cefTRIAXone(*) 1 GM in NS 0.9% 50 ML* 50 ML IVPB ONE; diPHENhydraMINE IV* 50 MG/ML 1 ml VIAL (BENADRYL) ONE; fentaNYL* 50 MCG/ML 2 ML VIAL (100 MCG VIAL) ONE; nitroGLYCERIN DRIP* 25,000 MCG/250 ML BTL ONE
[2018-04-28 08:53] LABS: INR 0.93 (0.77-1.02)
--- NOTE | 2018-05-09 09:47 | RAD ---
CPT II Codes: G9500 Procedure(s) performed: 1. Diagnostic arteriogram of superior mesenteric artery, celiac trunk and branch arteries of the liver. 2. Particle embolization of the middle hepatic artery and right hepatic artery. 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 The patient has extensive prior imaging available for review including angiographic images from the February 18, 2016 bland liver embolization. Contrast: 95 mL Omnipaque 300 Fluoroscopy Time: 28 minutes Vessels Accessed: Percutaneous access was obtained with ultrasound guidance in the right common femoral artery in the retrograde direction towards the heart. Catheter arteriography, with the catheter tip located within the lumen of the following arteries, was performed at the superior mesenteric artery, celiac trunk, proper hepatic artery, right hepatic artery and middle hepatic artery. Anesthesia: Conscious sedation with IV Fentanyl and Versed as well as local 1% lidocaine injected locally at the arteriotomy site. Conscious sedation time: Timeout: 1028 hours Case end: 1229 hours Total conscious sedation time: 2 hours and 1 minute Additional medications: * Toradol 15 mg. * The patient received 1 mg of p.o. Ativan prior to the onset of the procedure. * Due to a reported contrast allergy, the patient received a standard steroid prep, 50 mg prednisone p.o. 13, 7 and 1 hour prior to the procedure as well as 50 mg of diphenhydramine. * Scopolamine 1.5 mg transdermal applied to the mastoid process. * Zofran 4 mg IV. * The patient received a prophylactic regimen of Octreotide ordered and managed by oncology. PROCEDURE NOTE AND INTRAPROCEDURAL IMAGING FINDINGS: Immediately prior to the procedure the patient signed consent after thoroughly discussing all risks and benefits. The patient was positioned on the fluoroscopy table in the supine position and the bilateral groins were shaved, prepped and draped in standard sterile fashion. Using fluoroscopic imaging the location of the right common femoral head was marked externally with a skin marker on the patient's groin. Utilizing sonographic guidance and palpation the right common femoral artery was cannulated overlying the right femoral head with an 21-gauge needle. An ultrasound image was saved. A microwire was slowly and smoothly advanced to the aortic bifurcation under fluoroscopic imaging. No buckling of the wire was visualized to indicate dissection. Over the wire a 5-Lithuanian catheter was advanced into the artery, the inner stiffener removed and the microwire was replaced with a 0.035" Bentsen wire which was advanced into the aorta. Finally the 5 Lithuanian catheter was exchanged for a 5 Lithuanian sidearm sheath. Utilizing a 5-Lithuanian C2 reverse curve catheter and a 0.035 inch guidewire access was obtained to the contralateral common iliac artery and the wire was advanced under fluoroscopic guidance as far as the superficial femoral artery. With the wire securely maintaining position the C2 reverse curve catheter was removed and replaced with a 5-Lithuanian SIM2 catheter. The catheter was formed over the iliac bifurcation and then gently advanced in the cephalad direction towards the superior mesenteric artery. The superior mesenteric artery was accessed with the Beatty catheter and contrast arteriography demonstrated wide patency of the superior mesenteric artery. Delayed images were acquired to image the portal venous system demonstrating the superior mesenteric vein, main portal vein and right portal vein to be adequately patent. The left portal vein is mostly patent but does not fill in its distal most branches. The wire was reinserted and the catheter was removed from the superior mesenteric artery and moved in the cephalad direction to gain access to the celiac axis. With the tip of the 5-Lithuanian catheter at the distal most common hepatic artery contrast arteriography demonstrated widely patent celiac trunk including the common hepatic artery, gastroduodenal artery and gastric branches. There is filling of the proximal portion of the splenic artery as well. The right gastric artery branches off of the proximal most portion of the proper hepatic artery. The left gastric artery branches off of the celiac trunk more proximal from the catheter tip injection site. To more carefully depict the branching pattern of the hepatic arterial vasculature right and left oblique images were acquired with the catheter tip at the distal most common hepatic artery. The following arterial anatomic features were identified: There appears to be a hypertrophied branch off of the right lateral margin of the gastroduodenal artery supplying the right lobe of the liver. The right hepatic artery ends in a fairly abrupt "stump" consistent with the patient's history of right hepatic arterial embolization approximately 4 years earlier. Branching off of the proximal left hepatic artery is a large branch deemed to be a middle hepatic artery, a normal variant. Branches of this artery overlie segment 4 of the liver as described in the literature. An additional branch comes off of this middle hepatic artery (series 10.2 image 24 through 25) that appears to supply segment 5 of the liver. More specifically this artery appears to supply a known large carcinoid metastasis in segment 5 of the liver. The main left hepatic artery is patent and there appears to be relative increase in distal vasculature overlying the left lobe of the liver compared to the images from the previous embolization procedure February 18, 2016. Utilizing a microcatheter and wire the right middle hepatic artery was specifically selected and additional arteriography was performed demonstrating branches to segment 4 of the liver as well as a branch extending to the right lateral liver supplying a tumor at segment 5. Utilizing the catheter and wire system this branch to segment 5 of the liver was specifically cannulated and confirmed with arteriography. The embolization procedure began in this segment 5 branch artery and embolization was carried out until there was near complete stasis in this artery. The microcatheter was drawn back into the middle hepatic artery and embolization was performed at this point to partially embolized the distal branch arteries from the middle hepatic artery. The microcatheter was drawn back to the proper hepatic artery which demonstrated near static flow in the middle hepatic artery and branches off of the middle hepatic artery. Adequate flow is retained in the left hepatic artery. Utilizing the catheter and wire system the right hepatic artery "stump" was specifically selected and arteriography was performed demonstrating branch arteries to the right lobe of the liver. Particle embolization was performed under fluoroscopic control to near complete stasis of these arteries. In total 1 vial of 100-300 um embospheres were utilized in the embolization procedure. The microcatheter and wire system were removed and a final arteriogram was performed through the 5-Lithuanian catheter, still with the tip at the distal most common hepatic artery which demonstrated a relative reduction of flow overlying the right lobe of the liver and the segment 4 branches. Still seen supplying the right lobe of the liver is a branch artery from the gastroduodenal artery. Also unchanged from the beginning of the procedure is flow through the left hepatic artery. All branch arteries previously identified going to the stomach, spleen and proximal small bowel remain patent. The 0.035 inch wire was reinserted and the catheter was removed over the wire followed by the wire being removed. Finally the access sheath was removed and gentle manual pressure was held over the arteriotomy site for approximately 15 minutes. There were no signs of bleeding at the right groin access site and the site was dressed with sterile gauze and Tegaderm. The patient tolerated the procedure well and was transferred to intensive care unit for standard post procedural pharmacologic management and observation. SUMMARY OF PROCEDURE, IMAGING FINDINGS AND INTERVENTIONS PERFORMED: 1. Diagnostic studies performed: * Arterial access was obtained at the right common femoral artery in the retrograde direction (i.e. towards the heart) with ultrasound guidance. A sonographic image was recorded. * Diagnostic catheter angiography (necessary to perform the appropriate interventions) was performed with the catheter tip in the superior mesenteric artery, celiac trunk, common hepatic artery, middle hepatic artery and right hepatic artery. * Catheter arteriography was performed of the proximal superior mesenteric artery. Delayed venogram was obtained to visualize the portal venous system. * Catheter arteriography was performed at the celiac trunk visualizing the entire arterial system to the liver, stomach and proximal splenic artery. 2. Interpretation of diagnostic studies performed: * The portal venous system is adequately patent except for the distal most branches from the left portal vein. Relative to the February 18, 2016 embolization procedure, there appears to be improved patency of the left portal vein. * There is a large branch artery along the right lateral margin of the gastroduodenal artery supplying arterial flow to the right lobe of the liver. This artery was not embolized during this procedure. * The right hepatic artery ends in a "stump" consistent with the patient's prior embolization of this artery approximately 4 years earlier. * A large branch artery off of the proximal portion of the left hepatic artery is seen to be a middle hepatic artery, a normal anatomic variant. * Branching off of this middle hepatic artery is a branch directed towards the right lateral and inferior liver apparently providing direct blood flow to the large carcinoid tumor in segment 5 of the liver. * The nonhepatic branches from the celiac trunk are widely patent, both before and after the embolization procedure. 3. Surgical interventions performed: * Barrow particle embolization of the right hepatic arteries utilizing 1 vial of embospheres 100-300 um. Particle embolization was performed to stasis of the large branch artery traveling towards segment 5 of the liver off of the middle hepatic artery. Then embolization was performed of the middle hepatic artery for branches supplying segment 4 of the liver. The remaining particles were injected into the right hepatic artery "stump" delivering particles to the branch arteries to the right lobe of the liver. * The large branch artery coming off of the right lateral margin of the gastroduodenal artery was not embolized. 4. Interpretation of interventions performed: * Final arteriography demonstrated relative decreased arterial flow to the right lobe of the liver and segment 4 corresponding to the site of bland particle embolization.. Plan: 1. The patient will be admitted to the oncology service to manage embolization syndrome, administer intravenous octreotide and to monitor for signs of infection and/or liver injury. 2. Pain and nausea management according to interventional radiology protocol. 3. Follow-up with interventional radiology will include telephone call 2-3 days status post hospital discharge and clinic visit to the interventional radiology clinic approximately one month post embolization.
== END | disposition home or self-care (01) ==
LOC: CHICATH 04-20 06:48
PROVIDERS: ATTEND Radiology Diagnostic Radiology
DX: C7B.02 Secondary carcinoid tumors of liver (principal); C7A.019 Malignant carcinoid tumor of the small intestine, unspecified portion; Z87.891 Personal history of nicotine dependence; R73.09 Other abnormal glucose
CPT/HCPCS: 36415; 37243; 75726; 76937; 85610; 85730; 99156; 99157; C1769; C1887; C1894; J0696; J1100; J1200; J1885; J2250; J2310; J2354; J2405; J3010

== ENCOUNTER 2018-04-28 10:23 | Inpatient (IN) | payer MEDICARE ==
[2018-04-28] MEDS ORDERED: Dextrose 50% Syringe 50 ML* 25 GM/50 ML SYRINGE IV PUSH PRN (10:38)
[2018-04-28] MEDS ORDERED: HYDROmorphone INJ* 2 MG/ML CARPUJECT SYRINGE IV SLOW PU PRN (11:26)
[2018-04-28] MEDS ORDERED: Calcium Carbonate CHEW TAB* 500 MG (TUMS) PO PRN (11:26)
[2018-04-28] MEDS ORDERED: Simethicone TAB* 80 MG TAB.CHEW PO PRN (11:26)
--- OUTSIDE RECORDS SUMMARY | 2018-04-28 13:20 | XMS REPORT ---
:1940 External Reference #:[id number] Author Organization [facility] Address [address] [place] [address] Phone [phone] Care Team Providers Name Role Phone Tobi Amos M.D. Primary Care Physician Unavailable Payers Type Date Identification Numbers Payment Provider Subscriber Commercial Policy Number: [id number] [employer] Danae Gomes PayID: [id number] [place] [id number] Problems Date Description Provider Status Onset: Carcinoma in situ of liver Active Onset: 05/22/2015 Primary open angle glaucoma Mark Vyas M.D. Active Onset: 05/22/2015 Vitreous degeneration Mark Vyas M.D. Active Onset: 05/22/2015 Moderate Glaucoma Mark Vyas M.D. Active Onset: 05/22/2015 Pseudophakia Mark Vyas M.D. 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 Active Onset: 11/22/2017 Tear film insufficiency Yousif Lynn M.D. Active Family History Date Family Member(s) Problem(s) Comments Father No Current Problems Mother ? 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 Urticaria active 04/03/2018 Pollen active 05/22/2015 NKDA inactive Medications Medication Date Status Form Strength Qnty SIG Indications Ordering Provider Hydrochlorothiazide 00 Active Tablets 25mg Unknown /0000 Sucralfate 00 Active Tablets 1gm Skjolie, /0000 Tobi M.DDelmer Fluticasone Active Suspension 50mcg/Act Unknown Propionate /0000 Multi Vitamin Daily Active Tablets Unknown /0000 Ibuprofen Active Tablets 200mg Unknown /0000 Maalox Active Chewtabs 600mg Unknown / Tums Active Chewtabs 500mg Unknown /[address] 40mg Unknown Magnesium Sandostatin Active Solution Unknown / Acetaminophen Active Tablets 500mg prn Unknown / Artificial Tears Active Solution 0.2-0.2-1 as Mark Virgen / % needed Marybel Vyas Carteolol HCL Active Solution 1% instill Yousif one drop Zablocki, in both M.D. eyes in the morning Carteolol HCL 05/21 Hx Solution 1% 6unit Instill Mark Virgen /2014 s 1 Drop Argeorgina, - In Both M.D. 11/[address] Hx Capsules [address] 40mg Unknown /0000 - 02/21 Vitamin D Hx Tablets 1000Unit every Unknown /0000 day - 08/21 Tylenol Hx Tablets 325mg 1 tab by Unknown /0000 mouth - every 4 08/04 hours needed Sandostatin Lar Hx Kit 50mg 1 inj Unknown Depot /0000 every 28 - days 02/21 Results Description No Information Procedures Date CPT Code Description Status 12/02/2017 40313 Visual Field Exam Extended Completed 11/22/2017 09499 Est Patient Intermediate Exam Completed 11/03/2017 85732 Scanning Computerized Ophthalmic Diagnostic Imag Completed Posterior Seg On 11/03/2017 99215 Est Patient Intermediate Exam Completed 07/04/2017 23916 Est Patient Intermediate Exam Completed 07/01/2017 97575 Visual Field Exam Extended Completed 02/22/2017 41497 Visual Field Exam Extended Completed 02/22/2017 81951 Est Patient Intermediate Exam Completed 10/26/2016 64577 Scanning Computerized Ophthalmic Diagnostic Imag Completed Posterior Seg On 10/26/2016 70373 Est Patient Intermediate Exam Completed 03/26/2016 42489 Est Patient Comprehensive Exam Completed 03/26/2016 85080 Visual Field Exam Extended Completed 03/26/2016 92523 Fundus Photography With Interpretation And Report Completed 2015 98907 Gonioscopy Completed 2015 50593 Est Patient Intermediate Exam Completed 08/21/2015 97652 Visual Field Exam Extended Completed 05/22/2015 58791 Scanning Computerized Ophthalmic Diagnostic Imag Completed Posterior Seg On 05/22/2015 89136 Visual Field Exam Extended Completed 05/22/2015 10498 New Patient Comprehensive Exam Completed 05/22/2015 65752 Pachymetry Completed Encounters Type Date Location Provider CPT E/M Dx Office Visit 12/02/2017 Mark Vyas MD, Mark Vyas, [address] H40.1131 11:15a bonnie No Z96.1 Plan of Care 04/03/2018 - Mark Vyas M.D.H40.1131 Primary open-angle glaucoma, bilateral, mild stageComments:Smoking can increase the risk of developing or worsening any eye related disease, as well as affect your overall health. If you are a smoker, we strongly recommend that you quit.If you are not a smoker, we strongly recommend that you do not start. Your glaucoma is stable at this time.Your eye pressure is within an acceptable range, and your testing does not show any further deterioration at this time. Please continue your treatment.Follow up:2 Month Follow Up IOP Check Visual Field, 30-2 At your next visit, we are not planning to dilate your eyes. However, if you have any changes in your vision or new symptoms, there are certain situations that require us to dilate your eyes. If Dr. Vyas requests any additional testing, that may require extra time. If you have any questions before your next appointment, please call our office at .Z96.1 Presence of intraocular lensComments:The artificial lens implants in both eyes appear to be stable at this time.
[2018-04-28] MEDS ORDERED: Insulin LISPRO* 1 UNITS UNIT SUBCUT SCH (14:00)
[2018-04-28] MEDS ORDERED: NS 0.9% 1000 ML* 1,000 ML IVPB SCH (14:19)
[2018-04-28] MEDS ORDERED: Naloxone* 0.4 MG/ML 1 ML VIAL IV PUSH PRN (14:19)
[2018-04-28] MEDS ORDERED: Morphine PCA* 150 MG in PREMIX PCA SCH (15:00)
[2018-04-28] MEDS: Insulin LISPRO* 1 UNITS UNIT SUBCUT SCH ×2 (16:00→21:34)
[2018-04-28] MEDS: Ketorolac INJ* 15 MG/ML 1 ML VIAL IV PUSH SCH ×2 (16:53→23:37)
[2018-04-28] MEDS: Ondansetron 40 MG VIAL* 2 MG/ML 20 ML VIAL IV SCH ×2 (16:53→23:38)
--- NOTE | 2018-04-28 18:34 | PN ---
Progress Note - Progress Note Date of Service: 04/28/18 SOAP: Subjective: No pain complaints or nausea. No chest pain. No shortness of breath. Sitting up in chair eating dinner. Objective: Selected Entries 04/28/18 15:46 Temperature 98.8 F Temperature Temporal Artery Source Scan 151/75, HR 54, 96% (room air) NAD, AAO X 3 Abdomen is soft, minimal tenderness elicited when pressing the RUQ, no rebound, no guarding Right groin is soft, NT Dressing is CDI 2+ pulses palpated at right OPTIMIZATION MANAGER, pop and DPA Assessment: 77 YOF s/p superior mesenteric and hepatic arteriography followed by bland partial embolization of the right and middle hepatic arteries. Plan: 1. Pain and nausea control as prescribed. 2. Monitor for post embolization syndrome. 3. Carcinoid management as directed by oncology (currently octreotide is running at 50 mcg/hr).
[2018-04-28] MEDS: Octreotide Acetate* 500 MCG in NS 0.9% 100 ML* 100 ML IVPB SCH (20:28)
[2018-04-28 21:12] LABS: EGFR Non-African American 62.5 (>60)
[2018-04-29] MEDS: NS 0.9% 1000 ML* 1,000 ML IV SCH ×4 (00:09→22:47)
[2018-04-29] MEDS: Octreotide Acetate* 500 MCG in NS 0.9% 100 ML* 100 ML IVPB SCH ×2 (00:13→06:28)
[2018-04-29] MEDS: Insulin LISPRO* 1 UNITS UNIT SUBCUT SCH ×6 (00:13→20:09)
[2018-04-29] MEDS: Ketorolac INJ* 15 MG/ML 1 ML VIAL IV PUSH SCH (03:56)
[2018-04-29] MEDS: Ondansetron 40 MG VIAL* 2 MG/ML 20 ML VIAL IV SCH ×4 (03:56→22:24)
[2018-04-29 04:50] LABS: ABS Basophils 0 10^3/ul (0-0.2); ABS Eosinophils 0 10^3/ul (0-0.6); ABS Lymphocytes 0.8 10^3/ul (1.0-4.8); ABS Monocytes 1.1 10^3/ul (0-0.8); ABS Neutrophils 6.7 10^3/ul (1.5-7.7); ABS Nucleated RBC 0 10^3/ul; Eosinophil % 0.1 % (0-6); Hematocrit 34 % (35-47); Hemoglobin 11.4 g/dl (12.0-16.0); Lymphocyte % 9.5 % (25-47); Mean Corpuscular HGB Conc 34 g/dl (31-36); Mean Corpuscular Hemoglobin 34 pg (27-31); Mean Corpuscular Volume 101 fL (80-97); Mean Platelet Volume 8.4 um3 (7.4-10.4); Nucleated Red Blood Cells % 0; Platelet Count 174 10^3/ul (150-450); Red Blood Count 3.32 10^6/ul (4.0-5.4); Red Cell Distribution Width 14 % (10.5-15); White Blood Count 8.7 10^3/ul (3.5-10.8)
[2018-04-29] MEDS: Docusate CAP* 100 MG PO SCH (08:25)
[2018-04-29] MEDS: CARTEOLOL HCL OPHTHALMIC SCH (08:25)
[2018-04-29] MEDS: Cetirizine* 10 MG TAB PO SCH (08:25)
[2018-04-29] MEDS: Fluticasone NASAL SPRAY 50MCG* 16 gm SPRAY BTL NASAL SCH (08:26)
[2018-04-29] MEDS: Sucralfate TAB* 1 GM PO SCH (08:26)
[2018-04-29] MEDS: ESOMEPRAZOLE 40 MG PO SCH (08:26)
[2018-04-29] MEDS: Prenatal Vitamin TAB PO SCH (08:26)
--- NOTE | 2018-04-29 10:23 | PN ---
Progress Note - Progress Note Date of Service: 04/29/18 Note: Date of Service: 04/29/18 Labs, vitals and notes reviewed remotely. Conversation held with patient's nurse who reports no signs of complication at the right common femoral arteriotomy and no significant abdominal pain. Selected Entries 04/29/18 04/29/18 07:00 08:30 Temperature 98.2 F Heart Rate 54 Respiratory 11 Rate Blood Pressure 175/73 (mmHg) Blood Pressure 107 Mean O2 Sat by Pulse 100 Oximetry Laboratory Tests 04/28/18 04/29/18 04/29/18 20:44 04:44 04:44 WBC 8.7 Hgb 11.4 L Hct 34 L Plt Count 174 BUN 19 Creatinine 0.88 Est GFR (Non-Af Amer) 62.5 Glucose 121 H Total Bilirubin 0.40 Direct Bilirubin 0.10 Indirect Bilirubin 0.3 AST 41 H ALT 22 Alkaline Phosphatase 96 Assessment: 77 YOF POD #1 bland hepatic artery embolization of the middle and right hepatic arteries to reduce symptoms related to carcinoid metastases to the liver. Plan: 1. Transition IV toradol and zofran to PO. 2. Encourage diet and ambulation. 3. No antibiotics beyond pre-emoblization antibiotics indicated as patient does not have history of bilioenteric anastomotic surgery and is not displaying any signs of infection. 4. Octreotide administration according to oncology regimen.
[2018-04-29] MEDS: Octreotide Acetate* 500 MCG/ML 1 ML VIAL SUBCUT SCH ×2 (11:07→22:44)
[2018-04-29] MEDS: Ketorolac TAB * 10 MG TAB PO SCH ×2 (11:08→18:30)
[2018-04-29] MEDS: Ondansetron TAB* 4 MG PO SCH ×3 (11:08→22:43)
[2018-04-29] MEDS: Losartan TAB* 25 MG PO SCH (11:51)
--- NOTE | 2018-04-29 13:43 | PN ---
Progress Note - Progress Note Date of Service: 04/29/18 SOAP: Subjective: Patient seen and examined at the bedside. No pain complaints. Mild nausea, but no emesis. Has eaten breakfast and is drinking water and tea. No SOB or CP. Reports poor sleep and wants to transfer to standard hospital room. Objective: Selected Entries 04/29/18 12:31 Heart Rate 51 Respiratory 16 Rate Blood Pressure 156/69 (mmHg) Blood Pressure 101 Mean O2 Sat by Pulse 100 Oximetry Laboratory Tests 04/29/18 11:50 POC Glucose (mg/dL) 91 NAD, AAO x 3 Sitting up in bed Patient appears minimally flushed around neck and upper extremities. Abdomen is soft, nontender Mild tenderness can be elicited when pressing RUQ. No rebound or guarding. Right groin is soft, NT Dressing is CDI 2+ pulses in RLE RLE is neuromuscular intact Assessment: 77 YOF POD #1 bland particle embolization of right and middle hepatic arteries to reduce symptoms associated with carcinoid metastases to the liver. Mild nausea, but no emesis and pain is controlled. No signs of severe embolization syndrome currently. Plan: 1. Octreotide drip was restarted due to hypertension and mild flushing. Octreotide will continue to be managed directly by Hospitalists/Signal Timer guided by protocol created by Dr. Ponce. 2. Patient wants to transfer to telemetry. Will discuss with admitting doctor(s) . 3. Continue PO toradol and zofran as ordered.
--- NOTE | 2018-04-29 15:05 | PN ---
Subjective Date of Service: 04/29/18 Interval History: Patient did not sleep last night. Patient had embolization multiple hepatic carcinoid foci yesterday. Denies abdo pain. Has been eating a bit. At baseline uses sandostatin 40 mg ER once/month, and uses rescue injections. BP normally controlled w/ HTCZ at home. Family History: Unchanged from Admission Social History: Unchanged from Admission Past Medical History: Unchanged from Admission Objective Active Medications: Calcium Carbonate (Tums*) 1,000 mg PO TID PRN PRN Reason: INDIGESTION Cetirizine HCl (Zyrtec*) 10 mg PO DAILY [facility] Last Admin: 04/29/18 08:25 Dose: Not Given Dextrose (D50w Syringe 50 Ml*) 12.5 gm IV PUSH .FOR FS < 60 - SS PRN PRN Reason: FS < 60 Docusate Sodium (Colace Cap*) 200 mg PO DAILY [facility] Last Admin: 04/29/18 08:25 Dose: Not Given Esomeprazole Magnesium (Nexium(Nf)) 40 mg PO DAILY [facility] PRN Reason: Protocol Last Admin: 04/29/18 08:26 Dose: Not Given Fluticasone Propionate (Flonase Nasal [place] 50mcg*) 2 spray NASAL QAM [facility] Last Admin: 04/29/18 08:26 Dose: Not Given Hydromorphone HCl (Dilaudid Inj*) 1 mg IV SLOW PU Q4H PRN PRN Reason: PAIN Sodium Chloride (Ns 0.9% 1000 Ml*) 1,000 mls @ 125 mls/hr IV PER RATE [facility] Last Admin: 04/29/18 11:09 Dose: 125 mls/hr Sodium Chloride (Ns 0.9% 1000 Ml*) 1,000 mls @ 0 mls/hr IVPB .Q24H ANIBAL PRN Reason: KVO Insulin Human Lispro (Humalog*) 0 units SUBCUT Q4H ANIBAL PRN Reason: Protocol Last Admin: 04/29/18 12:40 Dose: Not Given Ketorolac Tromethamine (Toradol Tab *) 5 mg PO Q8H [facility] Stop: 05/02/18 10:59 Last Admin: 04/29/18 11:08 Dose: 5 mg Losartan Potassium (Cozaar Tab*) 25 mg PO DAILY [facility] Last Admin: 04/29/18 11:51 Dose: 25 mg Multivitamins ( Vitamin Tab*) 1 tab PO DAILY [facility] Last Admin: 04/29/18 08:26 Dose: Not Given Naloxone HCl (Narcan*) 0 mg IV PUSH Q2M PRN PRN Reason: SEDATION Pto: Carteolol Hcl 1 drop OPHTHALMIC DAILY [facility] Last Admin: 04/29/18 08:25 Dose: Not Given Octreotide Acetate (Octreotide Acetate*) 300 mcg SUBCUT Q12H [facility] Last Admin: 04/29/18 11:07 Dose: 300 mcg Ondansetron HCl (Zofran 40 Mg Vial*) 4 mg IV Q6H [facility] Stop: 05/01/18 10:01 Last Admin: 04/29/18 11:08 Dose: Not Given Ondansetron HCl (Zofran Tab*) 4 mg PO Q6H [facility] Stop: 05/04/18 10:59 Last Admin: 04/29/18 11:08 Dose: 4 mg Simethicone (Mylicon Tab*) 160 mg PO BID PRN PRN Reason: DISCOMFORT Sucralfate (Carafate*) 1 gm PO DAILY [facility] Last Admin: 04/29/18 08:26 Dose: Not Given Vital Signs - 8 hr 04/29/18 04/29/18 04/29/18 11:02 11:31 12:00 Temperature 36.4 C Pulse Rate 51 51 59 Respiratory 16 11 18 Rate Blood Pressure 178/78 177/71 (mmHg) O2 Sat by Pulse 99 99 Oximetry 04/29/18 04/29/18 04/29/18 12:13 12:22 12:31 Temperature Pulse Rate 52 52 50 Respiratory 12 13 16 Rate Blood Pressure 170/85 183/79 156/69 (mmHg) O2 Sat by Pulse 99 100 Oximetry Oxygen Devices in Use Now: Nasal Cannula Appearance: lying flat in bed, no distress Eyes: No Scleral Icterus Ears/Nose/Mouth/Throat: NL Teeth, Lips, Gums Neck: NL Appearance and Movements; NL JVP Respiratory: Symmetrical Chest Expansion and Respiratory Effort Cardiovascular: NL Sounds; No Murmurs; No JVD Abdominal: No Hepatosplenomegaly, - - tender RUQ and epigastric, no masses, +BS Lymphatic: No Axillary Adenopathy Skin: No Rash or Ulcers Neurological: Alert and Oriented x 3 Lines/Tubes/Other Access: Clean, Dry and Intact Peripheral IV Nutrition: Taking PO's Result Diagrams: 04/29/18 04:44 04/28/18 20:44 Microbiology and Other Data: Microbiology 04/28/18 13:20 Nasal Screen MRSA (PCR)(ALYSON) - Final Nasal Mrsa Not Detected Assess/Plan/Problems-Billing Assessment: 77 yo w/ metastatic neuro-endocrine tumor (Carcinoid) who underwent embolization multiple areas of liver on 04/28/18, here monitoring for post- embolization syndrome. - Patient Problems (1) Multiple metastatic carcinoid tumors Current Visit: No Status: Acute Priority: High Onset Date: 02/18/16 Code (s): C7B.00 - SECONDARY CARCINOID TUMORS, UNSPECIFIED SITE SNOMED Code(s): 394709860 Comment: - no severe signs of post-embolization syndrome - symptoms of flushing more related to carcinoid than embolization. - stable to move from ICU to medical floor. (2) Hypertension Current Visit: No Status: Acute Priority: Medium Code(s): I10 - ESSENTIAL (PRIMARY) HYPERTENSION SNOMED Code(s): 16136824 Comment: - BP higher, possibly due to tissue damage, release of vasoactive substances - Started on Cozaar. (3) Hyponatremia Current Visit: No Status: Acute Priority: Medium Code(s): E87.1 - HYPO- OSMOLALITY AND HYPONATREMIA SNOMED Code(s): 33029151 Comment: - sodium mildly low, will recheck in AM (4) DVT prophylaxis Current Visit: Yes Status: Acute Priority: Low Code(s): KBW5838 - SNOMED Code(s): 982378044 Comment: - SCDs
[2018-04-29] MEDS: Acetaminophen TAB* 325 MG PO PRN (20:06)
[2018-04-29] MEDS ORDERED: CMCS Melatonin (NF) 3 MG TAB PO SCH (21:00)
[2018-04-30] MEDS: Ondansetron 40 MG VIAL* 2 MG/ML 20 ML VIAL IV SCH ×2 (03:33→09:33)
[2018-04-30] MEDS: Ketorolac TAB * 10 MG TAB PO SCH ×2 (03:37→14:07)
[2018-04-30] MEDS: Ondansetron TAB* 4 MG PO SCH ×2 (03:38→14:07)
[2018-04-30] MEDS: Insulin LISPRO* 1 UNITS UNIT SUBCUT SCH ×4 (03:55→13:45)
[2018-04-30 06:59] LABS: Hematocrit 31 % (35-47); Hemoglobin 10.8 g/dl (12.0-16.0); Mean Corpuscular HGB Conc 34 g/dl (31-36); Mean Corpuscular Hemoglobin 34 pg (27-31); Mean Corpuscular Volume 100 fL (80-97); Mean Platelet Volume 9.1 um3 (7.4-10.4); Platelet Count 127 10^3/ul (150-450); Red Blood Count 3.14 10^6/ul (4.0-5.4); Red Cell Distribution Width 14 % (10.5-15)
[2018-04-30 07:04] LABS: ABS Basophils 0 10^3/ul (0-0.2); ABS Eosinophils 0 10^3/ul (0-0.6); ABS Lymphocytes 0.4 10^3/ul (1.0-4.8); ABS Monocytes 1.7 10^3/ul (0-0.8); ABS Neutrophils 9.9 10^3/ul (1.5-7.7); ABS Nucleated RBC 0 10^3/ul; Eosinophil % 0.2 % (0-6); Lymphocyte % 3.5 % (25-47); Nucleated Red Blood Cells % 0
[2018-04-30 07:22] LABS: EGFR Non-African American 97.2 (>60)
[2018-04-30] MEDS: CARTEOLOL HCL OPHTHALMIC SCH (09:29)
[2018-04-30] MEDS: Docusate CAP* 100 MG PO SCH (09:30)
[2018-04-30] MEDS: Fluticasone NASAL SPRAY 50MCG* 16 gm SPRAY BTL NASAL SCH (09:30)
[2018-04-30] MEDS: ESOMEPRAZOLE 40 MG PO SCH (09:30)
[2018-04-30] MEDS: Cetirizine* 10 MG TAB PO SCH (09:30)
[2018-04-30] MEDS: Losartan TAB* 25 MG PO SCH (09:31)
[2018-04-30] MEDS: Sucralfate TAB* 1 GM PO SCH (09:32)
[2018-04-30] MEDS: Prenatal Vitamin TAB PO SCH (09:32)
[2018-04-30] MEDS: Acetaminophen TAB* 325 MG PO PRN (09:33)
[2018-04-30] MEDS ORDERED: Potassium Chlor TAB* 20 MEQ TAB.ER PO ONE (13:40)
--- NOTE | 2018-04-30 14:05 | PN ---
Progress Note - Progress Note Date of Service: 04/30/18 Note: Discharge Progress Note Primary Diagnosis: embolization RT lobe liver w/ post-embolization syndrome Secondary Diagnoses: neuro-endocrine tumor with mets to liver, pelvis hyperlipidemia hypertension GERD glaucoma osteopenia Consultants: Dr. Tyler of IR Procedures: catheter embolization of portions of RT lobe liver Complications: post-embolization syndrome Pertinent laboratory/radiology testin04/28/18 13:20 Nasal Nasal Screen MRSA (PCR)(ALYSON) - Final Mrsa Not Detected Laboratory Tests 04/28/18 04/29/18 04/29/18 20:44 04:44 04:44 WBC 8.7 Hgb 11.4 L Plt Count 174 Sodium 132 L Potassium Glucose 190 H POC Glucose (mg/dL) AST 27 41 H ALT 04/30/18 04/30/18 04/30/18 03:52 06:23 06:23 WBC 12.0 H Hgb 10.8 L Plt Count 127 L Sodium 133 L Potassium 3.2 L Glucose POC Glucose (mg/dL) 132 H AST 91 H ALT 30 04/30/18 04/30/18 09:20 13:07 WBC Hgb Plt Count Sodium Potassium Glucose POC Glucose (mg/dL) 127 H 153 H AST ALT Tests pending upon discharge: none Discharge Physical Exam: Selected Entries 04/30/18 11:41 Temperature 36.9 C Pulse Rate 61 Respiratory 16 Rate Blood Pressure 132/51 (mmHg) O2 Sat by Pulse 96 Oximetry Alert, ambulatory Lungs: clear Heart; RRR, no murmur Abdo: soft, mild tenderness RUQ
[2018-04-30] MEDS: Octreotide Acetate* 500 MCG/ML 1 ML VIAL SUBCUT SCH (14:08)
[2018-04-30 16:26] VITALS: BP 131/53
--- NOTE | 2018-05-01 01:46 | DS ---
CC: Dr. Tyler; Dr. Ponce; Dr. Amos * DISCHARGE SUMMARY: DATE OF ADMISSION: 04/28/18 DATE OF DISCHARGE: 04/30/18 PRIMARY DIAGNOSIS: Postembolization syndrome following a catheter embolization of liver lesions in the right lobe of the liver. SECONDARY DIAGNOSES: 1. Neuroendocrine tumor (carcinoid) with metastasis to the liver and pelvis and other sites. 2. Hyperlipidemia. 3. Hypertension. 4. Gastroesophageal reflux disease. 5. Glaucoma. 6. Osteopenia. MEDICATIONS ON DISCHARGE: 1. Acetaminophen as needed. 2. Bismuth subsalicylate 525 mg p.o. t.i.d. p.r.n. 3. Calcium carbonate. 4. Tums 2 tabs p.o. t.i.d. p.r.n. 5. Carteolol 1 drop to each eye daily. 6. Colace 200 mg p.o. daily. 7. Esomeprazole 40 mg p.o. daily. 8. Fluticasone nasal spray 2 sprays each nostril daily. 9. Hydrochlorothiazide 1 tab p.o. daily. 10. Ketoralac 5 mg p.o. q.8 hours until Tuesday morning and then may switch to Aleve as needed. 11. Lactase 9000 units p.o. daily p.r.n. 12. Loratadine 10 mg p.o. daily. 13. Losartan 25 mg p.o. daily. 14. Melatonin 3 mg p.o. q.h.s. p.r.n. insomnia. 15. Multivitamin 1 table p.o. daily. 16. Octreotide injection self-administered subcu daily as needed for flushing. 17. Octreotide LAR 40 mg IM monthly. 18. Ondansetron 4 mg p.o. q.6 hours p.r.n. nausea. 19. Potassium chloride 10 mEq p.o. daily. 20. Simethicone b.i.d. as needed. 21. Sucralfate 1 tab p.o. daily as needed for heartburn. HOSPITAL COURSE: The patient came into the hospital on 04/28/18 under the care of Dr. Tyler and Dr. Caballero for elective embolization of known carcinoid tumor in the liver. This is the third episode of requiring embolization as the flushing reactions from carcinoid have worsened. As a result of planned tissue damage, the patient was monitored under the intensive care unit for postembolization syndrome for 48 hours. The patient did have mild increase in her liver enzymes with her AST rising from 27 up to 91. She had some flushing episodes on the day after admission, but no flushing on the day of discharge. Her blood pressure vera and was persistently in the 170s to 180s systolic. She was restarted on her hydrochlorothiazide and added Cozaar to the regimen with improvement in her blood pressure down to 131/53 on discharge. The patient also had hypokalemia with normal measurement of 4.1 on admission and 3.2 on the day of discharge. She was started on oral potassium supplement which may be potentially discontinued in a few weeks. The patient is advised to have a CBC and a CMP with copies to primary care, Oncology, and Vascular Surgery 2 days after discharge. The patient had no other important imaging studies or lab tests other than a CBC which showed white count of 12, hemoglobin of 10.8, and platelets of 127 on the day of discharge. DISPOSITION: To home where she lives with her . FOLLOWUP: Should be with Dr. Ponce within 2 weeks, with Dr. Tyler within 1 week , and Dr. Amos within 1 week. DIET: Should be following her special carcinoid diet. ACTIVITY: Should be as tolerated. TIME SPENT: More than 30 minutes was spent arranging for discharge for this complicated medical patient. [id number]/[facility] #: [id number] MTDD
[2018-05-01] MEDS ORDERED: Potassium Chlor TAB* 10 MEQ TAB.ER PO SCH (09:00)
== END 2018-04-30 16:30 | disposition home or self-care (01) | DRG 271 ==
LOC: ICU 13:16 → SSU 04-29 22:21
PROVIDERS: ADMIT Internal Medicine Hematology & Oncology; ATTEND Internal Medicine
PROC: 04V33DZ Restriction of Hepatic Artery with Intraluminal Device, Percutaneous Approach (ICD-10-PCS; principal; 2018-04-28)
DX: I74.8 Embolism and thrombosis of other arteries (principal); T81.718A Complication of other artery following a procedure, not elsewhere classified, initial encounter; C7B.02 Secondary carcinoid tumors of liver; C7B.09 Secondary carcinoid tumors of other sites; C7A.098 Malignant carcinoid tumors of other sites; E87.1 Hypo-osmolality and hyponatremia; E87.6 Hypokalemia; E78.5 Hyperlipidemia, unspecified; I10 Essential (primary) hypertension; K21.9 Gastro-esophageal reflux disease without esophagitis; H40.9 Unspecified glaucoma; M85.80 Other specified disorders of bone density and structure, unspecified site; Z88.8 Allergy status to other drugs, medicaments and biological substances; Z79.899 Other long term (current) drug therapy; Z87.891 Personal history of nicotine dependence; Z80.0 Family history of malignant neoplasm of digestive organs; Z82.61 Family history of arthritis
CPT/HCPCS: 36415; 80053; 80076; 82947; 83735; 84100; 85025; 85610; 85730; 87641; 99223; A9270-GY; J0696; J1100; J1200; J1885; J2250; J2310; J2354; J2405; J3010